=== PATIENT | male | born 1935 | race Caucasian/White ===

== ENCOUNTER 2018-01-10 09:18 | Outpatient (CLI) | payer MEDICARE, OTHER | END 2018-01-10 09:19 | disposition critical access hospital (66) | LOC: EMS 09:18 | PROVIDERS: ATTEND Surgery | DX: R20.0 Anesthesia of skin (principal) | CPT/HCPCS: A0425; A0429 ==

== ENCOUNTER 2018-01-10 09:37 | Emergency (ER) | payer MEDICARE, OTHER ==
--- NOTE | 2018-01-10 10:08 | ED Physician Documentation ---
PD HPI FOCAL NEURO - Stated complaint Stated Complaint: L ARM NUMBNESS - Chief complaint Chief Complaint: General - History obtained from History obtained from: Patient - History of Present Illness Timing - onset: Today Timing - duration: Minutes Timing - details: Abrupt onset, Now resolved Severity of deficit: Moderate Weakness: Arm, Hand, Left Numbness: Hand, Left Associated symptoms: Neck pain. No: Headache, Nausea / vomiting, Seizure, Syncope, Fall, Head injury, Chest pain, Fever Contributing factors: negative: Anticoagulated, Atrial fibrillation Baseline status: positive: A&OX3, ambulatory, indep Similar symptoms before: No diagnosis Recently seen: Not recently seen - Additional information Additional information: 82-year-old male with history of anxiety and BPH has had an episode this morning while sitting on his couch, of some pain across the back of his shoulders and subsequent difficulty using his left arm. 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 He has had something similar to this previously with a panic attack and syncope and he has had this previously with use of an bow and arrow and he has had evaluation of his cervical spine done in [place]. He was diagnosed with bone spurs in the neck. He has not been ill recently and feels he is adequately hydrating. He is under some stress with his 10 year old dog having some transient symptoms of blindness over the past week. He does not recall an injury or over use recently. Review of Systems Constitutional: denies: Fever Eyes: denies: Loss of vision, Decreased vision Ears: denies: Ear pain Nose: denies: Congestion Throat: denies: Sore throat Cardiac: denies: Chest pain / pressure, Palpitations Respiratory: denies: Dyspnea, Cough GI: denies: Abdominal Pain, Nausea, Vomiting : denies: Dysuria, Frequency Skin: denies: Rash Musculoskeletal: reports: Neck pain. denies: Back pain, Extremity pain Neurologic: reports: Focal weakness, Numbness. denies: Generalized weakness, Difficulty speaking, Confused, Altered mental status, Headache, Head injury, LOC PD PAST MEDICAL HISTORY - Past Medical History Cardiovascular: None Respiratory: None Endocrine/Autoimmune: Type 2 diabetes GI: None : Benign prostate hypertrophy, Frequency HEENT: Chronic vision loss Psych: None, Panic attacks Musculoskeletal: Osteoarthritis Derm: None - Past Surgical History Past Surgical History: Yes General: Colonoscopy HEENT: Cataracts, Tonsil/Adenoidectomy - Present Medications Home Medications: Ambulatory Orders Medication Instructions Recorded Confirmed Alprazolam [Xanax] 0.5 mg PO Q24HR@2100 PRN 07/06/13 07/28/15 Aspirin [Aspir 81] 81 mg PO DAILY 07/06/13 07/28/15 Finasteride [Proscar] 5 mg PO DAILY 07/06/13 07/28/15 Tamsulosin [Flomax] 0.4 mg PO DAILY 07/06/13 07/28/15 - Allergies Allergies/Adverse Reactions: Allergies Allergy/AdvReac Type Severity Reaction Status Date / Time amoxicillin [Amoxicillin] Allergy Severe heart palp. Verified 05/08/14 10:30 cyclobenzaprine HCl * Allergy Severe Heart palp. Verified 01/10/18 09:43 [From Flexeril] - Social History Does the pt smoke?: No Smoking Status: Never smoker Does the pt drink ETOH?: No Does the pt have substance abuse?: No - Immunizations Immunizations are current?: Yes - POLST Patient has POLST: No POLST Status: Full Code PD ED PE NORMAL - Vitals Vital signs reviewed: Yes (hypertensive ) - General General: Alert and oriented X 3, No acute distress, Well developed/nourished - HEENT HEENT: Atraumatic, PERRL, EOMI, Ears normal, Moist mucous membranes, Pharynx benign - Neck Neck: Supple, no meningeal sign, No bony TTP - Cardiac Cardiac: RRR, No murmur - Respiratory Respiratory: No respiratory distress, Clear bilaterally - Abdomen Abdomen: Soft, Non tender - Back Back: No CVA TTP, No spinal TTP - Derm Derm: Normal color, Warm and dry, No rash - Extremities Extremities: No deformity, No edema - Neuro Neuro: Alert and oriented X 3, 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, No motor deficit, No sensory deficit, Normal speech Eye Opening: Spontaneous Motor: Obeys Commands Verbal: Oriented GCS Score: 15 - Psych Psych: Normal mood, Normal affect NIHSS - Time Time: 10:20 - Level of Consciousness Level of consciousness: (0) Alert, Keenly responsive LOC Questions: (0) Answers both Q's correct LOC Commands: (0) Performs both correctly - Gaze Best Gaze: (0) Normal - Visual Visual: (0) No loss - Facial Palsy Facial Palsy: (0) Normal, symmetrical movement - Motor Arms (both separate) Motor Arm (right): (0) No drift Motor Arm (left): (0) No drift - Motor Legs (both separate) Motor Leg (right): (0) No drift Motor Leg (left): (0) No drift - Limb Ataxia Limb Ataxia: (0) Absent - Sensory Sensory: (0) Normal - Best Language Best Language: (0) No aphasia - Dysarthria Dysarthria: (0) Normal - Extinction and Inattention (formally neg Extinction and inattention: (0) No abnormality - Total Score/Results Total Score/Result: 0 Results - Vitals Vitals: Vital Signs - 24 hr 01/10/18 01/10/18 09:40 12:42 Temperature 36.1 C L Heart Rate 96 91 Respiratory 18 16 Rate Blood Pressure 172/83 H 149/87 H O2 Saturation 95 96 Oxygen O2 Source Room air - EKG (time done) 0955 Rate: Rate (enter#) (87) Rhythm: NSR [place]: LAD Compare to prior EKG: Unchanged from prior EKG (07-28-15) Computer interpretation: Agree with computer - Labs Labs: Laboratory Tests 01/10/18 01/10/18 01/10/18 09:48 09:48 09:48 WBC 7.0 RBC 4.32 L Hgb 15.1 Hct 43.1 MCV 99.9 H MCH 35.1 H MCHC 35.1 RDW 12.2 Plt Count 178 MPV 9.3 Neut # (Auto) 5.3 Lymph # (Auto) 1.0 L [place] # (Auto) 0.5 Eos # (Auto) 0.2 Baso # (Auto) 0.0 Absolute Nucleated RBC 0.00 Nucleated RBC % 0.0 Sodium 135 Potassium 4.1 Chloride 106 Carbon Dioxide 24 Anion Gap 5.0 L BUN 17 Creatinine 0.9 Estimated GFR (MDRD) 81 L Glucose 139 H Calcium 9.1 Total Bilirubin 0.9 AST 20 ALT 17 Alkaline Phosphatase 73 Troponin I < 0.04 Total Protein 7.0 Albumin 4.3 Globulin 2.7 Albumin/Globulin Ratio 1.6 Lipase 23 - Rads (name of study) head CT Radiology: Prelim report reviewed (Impression: Normal head CT. No acute intracranial abnormality.), EMP read indepedently, See rad report Procedures - IVC sono (time) 1020 Bedside IVC sono: IVC measures (cm) (1.60), Euvolemia PD MEDICAL DECISION MAKING - ED course Complexity details: reviewed old records, reviewed results, re-evaluated patient , considered differential, d/w patient ED course: 82-year-old male with findings isolated to the left arm and hand likely has a cervical radiculopathy. He is treated in the emergency department with 10 mg of dexamethasone. He will follow-up with Dr. Blanca regarding further treatment if necessary. At the conclusion of the visit today he has only minimal findings with the left hand. - Sepsis Event Vital Signs: Vital Signs - 24 hr 01/10/18 01/10/18 09:40 12:42 Temperature 36.1 C L Heart Rate 96 91 Respiratory 18 16 Rate Blood Pressure 172/83 H 149/87 H O2 Saturation 95 96 Oxygen O2 Source Room air Departure - Departure Disposition: 01 Home, Self Care Clinical Impression: Cervical radiculopathy Condition: Stable Instructions: ED Cervical Radiculopathy Follow-Up: Jones Adkins MD [Primary Care Provider] -
[2018-01-10] MEDS: DEXAMETHASONE 10 MG/ML VIAL IVP STA (10:31)
[2018-01-10 10:33] LABS: BASOPHILS % (AUTO) 0.4 %; EOSINOPHILS # (AUTO) 0.2 10^3/uL (0.0-0.7); EOSINOPHILS % (AUTO) 2.7 %; HGB - HEMOGLOBIN 15.1 g/dL (14.0-18.0); LYMPHOCYTES % (AUTO) 14.9 %; MEAN CORPUSCULAR HEMOGLOBIN 35.1 pg (27.0-31.0); MEAN CORPUSCULAR HGB CONC 35.1 g/dL (32.0-36.0); MEAN CORPUSCULAR VOLUME 99.9 fL (80.0-94.0); MEAN PLATELET VOLUME 9.3 fL (7.4-11.4); MONOCYTES # (AUTO) 0.5 10^3/uL (0.0-1.0); MONOCYTES % (AUTO) 6.5 %; NEUTROPHILS # (AUTO) 5.3 10^3/uL (1.5-6.6); NEUTROPHILS % (AUTO) 75.5 %; PLT - PLATELET COUNT 178 10^3/uL (130-450); RED BLOOD COUNT 4.32 10^6/uL (4.70-6.10); RED CELL DISTRIBUTION WIDTH 12.2 % (12.0-15.0)
[2018-01-10 10:41] LABS: ALBUMIN 4.3 g/dL (3.2-5.5); ALBUMIN/GLOBULIN RATIO 1.6 (1.0-2.2); BILIRUBIN,TOTAL 0.9 mg/dL (0.2-1.0); CALCIUM 9.1 mg/dL (8.5-10.3); CREATININE 0.9 mg/dL (0.6-1.2)
--- NOTE | 2018-01-10 11:19 | CT Report ---
Procedure Date: 01/10/2018 Accession Number: [id number] / [id number] Procedure: CT - Head W/O CPT Code: FULL RESULT: EXAM: CT HEAD EXAM DATE: 01/10/2018 10:49 AM. CLINICAL HISTORY: Left arm numbness. COMPARISON: None. TECHNIQUE: Multiaxial CT images were obtained from the foramen magnum to the vertex. Reformats: Coronal. IV contrast: None. In accordance with CT protocol optimization, one or more of the following dose reduction techniques were utilized for this exam: automated exposure control, adjustment of mA and/or KV based on patient size, or use of iterative reconstructive technique. FINDINGS: Parenchyma: No intraparenchymal hemorrhage. No evidence of mass, midline shift, or CT findings of infarction. Cali-white differentiation is distinct. Extraaxial Spaces: Normal for age. No subdural or epidural collections identified. Ventricles: Normal in size and position. Sinuses and Orbits: Imaged paranasal sinuses, orbits, and mastoids show no significant abnormality. Bones: No evidence of fracture or calvarial defect. Other: None. IMPRESSION: Normal head CT. No acute intracranial abnormality. RADIA
[2018-01-10 13:34] VITALS: BP 167/92
== END 2018-01-10 13:36 | disposition home or self-care (01) ==
LOC: EDUNIT# → ED 09:37
DX: M54.12 Radiculopathy, cervical region (principal); E86.0 Dehydration; E11.9 Type 2 diabetes mellitus without complications; Z79.82 Long term (current) use of aspirin
CPT/HCPCS: 36415; 70450; 80053; 83690; 84484; 85025; 93005; 96374; 99283; 99284

== ENCOUNTER 2018-01-17 14:07 | Outpatient (CLI) | payer MEDICARE, OTHER ==
--- NOTE | 2018-01-19 09:18 | MRI Report ---
Procedure Date: 01/17/2018 Accession Number: [id number] / [id number] Procedure: MRI - Cervical Spine W/O CPT Code: FULL RESULT: EXAM: MRI CERVICAL SPINE WITHOUT CONTRAST EXAM DATE: 01/17/2018 06:26 PM. CLINICAL HISTORY: Acute on chronic cervical pain. Left arm weakness. COMPARISONS: MRI of the cervical spine 09/03/2011. TECHNIQUE: Multiplanar, multisequence T1-weighted and fluid-sensitive sequences of the cervical spine without contrast. Other: None. FINDINGS: Neurologic Structures: The visualized posterior fossa structures are unremarkable. No signal abnormality in the visualized spinal cord. Alignment: Mild straightening of the cervical spine is noted. Minimal, 1 mm, spondylolisthesis is seen at C4-C5 and C7-T1. Bone Marrow: No gross fractures or bone lesions. No marrow edema. Interspace Levels/Facets: C1-C2: Evaluated on sagittal series. Small amount of fluid is seen between the anterior arch of C1 and the odontoid process. Mild subcortical cystic change is seen in the tip of the odontoid process. Mild thickening of posterior trans-alar ligaments is noted. No underlying canal stenosis. C2-C3: Marked right-sided and mild left-sided hypertrophic degenerative facet change is seen. Lobular dorsal subligamentous disk protrusion is seen in the midline and greater to the right of midline. Effacement and anterior concavity to the thecal sac and spinal cord is noted. Mild canal stenosis is seen. This has progressed. C3-C4: Marked left-sided hypertrophic degenerative facet change is seen. Minimal circumferential disk bulge is seen. Mild right-sided and marked left-sided hypertrophic degenerative uncovertebral change is noted. Effacement of the thecal sac is noted, greatest anteriorly to the left, with mild canal stenosis. Effacement of exiting C4 nerve roots is seen. Mild right foraminal stenosis. Marked left foraminal stenosis. This has progressed. C4-C5: Mild right-sided degenerative facet change is seen. Marked left-sided degenerative facet change is seen. Minimal spondylolisthesis. Minimal dorsal disk bulge with central annular fissure is seen. Mild ventral protrusion of disk/osteophyte complex is seen. Effacement of the thecal sac is noted without canal stenosis. Effacement of exiting C5 nerve roots is seen. Mild right foraminal stenosis. Marked left foraminal stenosis. C5-C6: Partial osseous fusion of the right facet joint is noted. Patchy partial peripheral osseous interbody fusion is seen. This is progressed. Mild lobular circumferential bridging osteophyte formation is seen posteriorly, laterally, and ventrally. Bridging ossified uncovertebral joints is seen. Lobular effacement and anterior concavity to the thecal sac and spinal cord is seen without canal stenosis. Effacement of exiting C6 nerve roots is seen bilaterally. Moderate bilateral foraminal stenosis. C6-C7: Patchy osseous interbody fusion is once again evident. Mild bridging lateral and ventral osteophyte formation is seen. Bridging uncovertebral change is seen. Effacement of exiting C7 nerve roots is seen with marked foraminal stenosis. C7-T1: Moderate degenerative facet change is seen. T2 hypointense disk signal is noted. Minimal dorsal with mild lateral and ventral disk bulge is seen. Effacement of exiting C8 nerve roots is noted with mild foraminal stenosis. Musculature: Normal. No edema or fatty atrophy. Other: The paravertebral and prevertebral soft tissues are normal. IMPRESSION: 1. Normal appearance to the cervical spinal cord. 2. 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 Interval osseous fusion at the C5-C6 level. Persistent osseous interbody fusion at the C6-C7 level. 3. 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 This has progressed in the upper cervical spine. This includes: -C2-C3: Mild canal stenosis. -C3-C4: Mild canal stenosis. Right Mild foraminal stenosis. Left marked foraminal stenosis. -C4-C5: Right mild foraminal stenosis. Left marked foraminal stenosis. -C5-C6: Bilateral moderate foraminal stenosis. -C6-C7: Bilateral marked foraminal stenosis. -C7-T1: Bilateral mild foraminal stenosis. RADIA
== END 2018-01-17 14:08 | disposition home or self-care (01) ==
LOC: DI 14:07
PROVIDERS: ATTEND Family Medicine
DX: M50.11 Cervical disc disorder with radiculopathy, high cervical region (principal); M25.78 Osteophyte, vertebrae
CPT/HCPCS: 72141

== ENCOUNTER 2019-11-16 09:57 | Outpatient (CLI) | payer MEDICARE, OTHER | END 2019-11-16 09:58 | disposition critical access hospital (66) | LOC: EMS 09:57 | PROVIDERS: ATTEND Surgery | DX: R53.1 Weakness (principal); R26.81 Unsteadiness on feet; R20.0 Anesthesia of skin | CPT/HCPCS: A0425; A0429 ==

== ENCOUNTER 2019-11-16 10:16 | Emergency (ER) | payer MEDICARE, OTHER ==
[2019-11-16] MEDS ORDERED: SODIUM CHLORIDE 0.9% 1,000 ML IV ONE (10:42)
--- NOTE | 2019-11-16 10:55 | ED Physician Documentation ---
PD HPI FOCAL NEURO - Stated complaint Stated Complaint: WEAKNESS - Chief complaint Chief Complaint: Neuro - History obtained from History obtained from: Patient, EMS - Additional information Additional information: Patient comes emergency department via EMS, complaining of left upper extremity weakness that started around 9:00 this morning. Patient states that he was feeling fine when he got up, but had a slight bit of nausea. He states that this is not unusual for him, as he often has some degree of anxiety in the morning, and nausea is associated with this. Patient states he decided to take his dog for a walk, but began to notice that his anxiety had gotten worse. He states that he was not breathing heavily, but began to feel some numbness and tingling in his left hand and felt slightly unsteady on his feet. Patient states that he has had the hand symptoms previously, and was told he had "a pinched nerve in his shoulder" after a full work-up to evaluate for CVA. He states the last time this happened was some years ago, he thinks in 2014. The patient states that he tried to touch his thumb tip to his fingertips, And that when he did so, his fingers seemed clumsy and like he could not make them do what he wanted them to do. Patient states that this same thing happened the last time he had these symptoms when he was diagnosed with a pinched nerve. Patient states that he did not have any other neurologic symptoms. He did not feel that his left leg was weak. He denies any trouble with speaking or swallowing. No visual changes. The patient states that in the hour and a half since symptoms started, his use of the left upper extremity seems to be better. Medics state that when they tried to get the patient to hold his arms out in front of him, they noticed pronator drift. Patient states that the weakness mainly feels as though it is in his forearm and hand, but especially in his fingers. Patient did not notice any symptoms on the right side he has no history of CVA previously. No diabetes. He states he intermittently finds that his blood pressure is elevated, usually in the 140s over 80s. He does not currently take any medication for this. The patient has a history of arthritis in his neck, but has not noticed any increase in his neck pain. No left shoulder pain. No other complaints at this time. Review of Systems Ten Systems: 10 systems reviewed and negative Constitutional: reports: Reviewed and negative Eyes: reports: Reviewed and negative Ears: reports: Reviewed and negative Nose: reports: Reviewed and negative Throat: reports: Reviewed and negative Cardiac: reports: Reviewed and negative Respiratory: reports: Reviewed and negative GI: reports: Reviewed and negative : reports: Reviewed and negative Skin: reports: Reviewed and negative Musculoskeletal: reports: Reviewed and negative Neurologic: reports: Focal weakness, Numbness Psychiatric: reports: Anxiety Endocrine: reports: Reviewed and negative Immunocompromised: reports: Reviewed and negative PD PAST MEDICAL HISTORY - Past Medical History Cardiovascular: None Respiratory: None Endocrine/Autoimmune: Type 2 diabetes GI: None : Benign prostate hypertrophy, Frequency HEENT: Chronic vision loss Psych: None, Panic attacks Musculoskeletal: Osteoarthritis Derm: None - Past Surgical History Past Surgical History: Yes General: Colonoscopy HEENT: Cataracts, Tonsil/Adenoidectomy - Present Medications Home Medications: Ambulatory Orders Medication Instructions Recorded Confirmed Alprazolam [Xanax] 0.5 mg PO Q24HR@2100 PRN 07/06/13 07/28/15 Aspirin [Aspir 81] 81 mg PO DAILY 07/06/13 07/28/15 Finasteride [Proscar] 5 mg PO DAILY 07/06/13 07/28/15 Tamsulosin [Flomax] 0.4 mg PO DAILY 07/06/13 07/28/15 - Allergies Allergies/Adverse Reactions: Allergies Allergy/AdvReac Type Severity Reaction Status Date / Time amoxicillin [Amoxicillin] Allergy Severe heart palp. Verified 11/16/19 10:26 cyclobenzaprine HCl * Allergy Severe Heart palp. Verified 11/16/19 10:26 [From Flexeril] - Social History Does the pt smoke?: No Smoking Status: Never smoker Does the pt drink ETOH?: No Does the pt have substance abuse?: No - Immunizations Immunizations are current?: Yes - POLST Patient has POLST: No POLST Status: Full Code PD ED PE NORMAL - Vitals Vital signs reviewed: Yes - General General: Alert and oriented X 3, No acute distress, Well developed/nourished, Other (Patient is talkative and very well-appearing.) - HEENT HEENT: Atraumatic, PERRL, EOMI, Moist mucous membranes - Neck Neck: Supple, no meningeal sign - Cardiac Cardiac: RRR, No murmur, Strong equal pulses - Respiratory Respiratory: No respiratory distress, Clear bilaterally - Abdomen Abdomen: Soft, Non tender, Non distended - Back Back: Other (Grossly normal range of motion) - Derm Derm: Normal color, Warm and dry, No rash - Extremities Extremities: No deformity, No tenderness to palpate, No edema, No calf tenderness / cord - Neuro Neuro: Alert and oriented X 3, director physical therapy 2-12 intact, Normal speech (The patient is noted to have slightly decreased athletics teacher strength on the left than the right, but 5 out of 5 on both sides. He does have pronator drift on the left, though is able to continually bring the arm back up. He is able to keep the arm off of the bed and his lap, but is not able to fully pronate. Patient has slightly decreased sensation on the left hand and forearm versus the right.) - Psych Psych: Normal mood, Normal affect NIHSS - Time Time: 10:35 - Level of Consciousness Level of consciousness: (0) Alert, Keenly responsive LOC Questions: (0) Answers both Q's correct LOC Commands: (0) Performs both correctly - Gaze Best Gaze: (0) Normal - Visual Visual: (0) No loss - Facial Palsy Facial Palsy: (0) Normal, symmetrical movement - Motor Arms (both separate) Motor Arm (right): (0) No drift Motor Arm (left): (1) Drift - Motor Legs (both separate) Motor Leg (right): (0) No drift Motor Leg (left): (0) No drift - Limb Ataxia Limb Ataxia: (1) Present in 1 limb (Patient has weakness at his wrist and hand on the left, and as such, is not able to extend his index finger appropriately to touch my finger and then his nose. However, with larger gross movements, he is able to bring his hand to my palm and then to his face with accuracy.) - Sensory Sensory: (1) [id number]-he-[id number] loss - Best Language Best Language: (0) No aphasia - Dysarthria Dysarthria: (0) Normal - Extinction and Inattention (formally neg Extinction and inattention: (0) No abnormality - Total Score/Results Total Score/Result: 3 Results - Vitals Vitals: Vital Signs - 24 hr 11/16/19 11/16/19 11/16/19 10:26 10:55 12:04 Temperature 36.9 C Heart Rate 103 H 103 H 96 Respiratory 17 16 16 Rate Blood Pressure 159/88 H 183/101 H 156/89 H O2 Saturation 97 98 97 11/16/19 11/16/19 11/16/19 12:24 13:03 13:44 Temperature Heart Rate 110 H 106 H 99 Respiratory 17 15 17 Rate Blood Pressure 156/89 H 172/89 H 160/84 H O2 Saturation 98 97 97 11/16/19 14:59 Temperature Heart Rate 94 Respiratory 16 Rate Blood Pressure 160/78 H O2 Saturation 97 Oxygen O2 Source Room air - Labs Labs: Laboratory Tests 11/16/19 11/16/19 11/16/19 10:42 10:55 10:55 WBC 7.6 RBC 4.12 L Hgb 14.4 Hct 39.8 L MCV 96.6 H MCH 35.0 H MCHC 36.2 H RDW 11.4 L Plt Count 176 MPV 10.7 Neut # (Auto) 6.0 Lymph # (Auto) 0.8 L [place] # (Auto) 0.5 Eos # (Auto) 0.2 Baso # (Auto) 0.0 Absolute Nucleated RBC 0.00 Nucleated RBC % 0.0 PT 13.7 H INR 1.2 APTT 30.3 Sodium Potassium Chloride Carbon Dioxide Anion Gap BUN Creatinine Estimated GFR (MDRD) Glucose Calcium Total Bilirubin AST ALT Alkaline Phosphatase Troponin I High Sens Total Protein Albumin Globulin Albumin/Globulin Ratio Lipase TSH Urine Color YELLOW Urine Clarity CLEAR Urine pH 6.5 Ur Specific [place] 1.025 Urine Protein NEGATIVE Urine Glucose (UA) 100 H Urine Ketones NEGATIVE Urine Occult Blood NEGATIVE Urine Nitrite NEGATIVE Urine Bilirubin NEGATIVE Urine Urobilinogen 0.2 (NORMAL) Ur Leukocyte Esterase NEGATIVE Ur Microscopic Review NOT INDICATED Urine Culture Comments NOT INDICATED 11/16/19 11/16/19 11/16/19 10:55 10:55 10:55 WBC RBC Hgb Hct MCV MCH MCHC RDW Plt Count MPV Neut # (Auto) Lymph # (Auto) [place] # (Auto) Eos # (Auto) Baso # (Auto) Absolute Nucleated RBC Nucleated RBC % PT INR APTT Sodium 136 Potassium 4.0 Chloride 107 Carbon Dioxide 22 Anion Gap 7.0 BUN 23 H Creatinine 0.7 Estimated GFR (MDRD) 108 Glucose 107 H Calcium 9.0 Total Bilirubin 1.0 AST 19 ALT 14 Alkaline Phosphatase 76 Troponin I High Sens 3.6 Total Protein 7.0 Albumin 4.3 Globulin 2.7 Albumin/Globulin Ratio 1.6 Lipase 27 TSH 1.81 Urine Color Urine Clarity Urine pH Ur Specific [place] Urine Protein Urine Glucose (UA) Urine Ketones Urine Occult Blood Urine Nitrite Urine Bilirubin Urine Urobilinogen Ur Leukocyte Esterase Ur Microscopic Review Urine Culture Comments - Rads (name of study) CT head Radiology: Final report received, EMP read indepedently, See rad report (Final radiologist interpretation: No acute pathology.) Carotid Doppler Radiology: Final report received, EMP read indepedently, See rad report (No evidence of hemodynamically significant stenosis on either side. Likely thyroid cyst.) PD MEDICAL DECISION MAKING - ED course Complexity details: reviewed old records, reviewed results, re-evaluated patient, considered differential, d/w patient ED course: Patient was evaluated by myself immediately upon arrival with medics. He overall was very well-appearing. However, he did have an NIH stroke scale score of 3, and his symptom onset was more concerning for cerebral ischemia than for nerve impingement. As such, he was worked up with labs, EKG, CT scan of the head, and carotid duplex ultrasound. The patient's work-up was negative. His carotid ultrasound did not show significant and CT scan did not show an acute CVA. I did attempt to order MRI, but because of MR tech unavailability, I was not able to get this done from the emergency department. I Reevaluated the patient, whose symptoms had improved significantly. He had much more dexterity of his fingers and was able to do [id number] test with minimal difficulty with his left hand. However, he was still unable to completely athletics teacher his phone to pick it up and nurse reported that he had dropped the urinal when urinating and holding the urinal with his Left hand. I discussed with the patient that we could admit the patient to the hospital, the MRI would not be available for several days. I also discussed with the patient that the other option is to transfer him to another hospital that has MRI availability. The patient, however, stated that his symptoms were improving, and this was very similar to the last time that he had the symptoms and that he would rather just go home and see how things go. He stated that he takes an aspirin every day and that he absolutely does not want to be admitted or the patient was in normal sinus rhythm and without a cardiac murmur. I felt that at this point, management will be primarily preventative and the patient is already on aspirin for this. I discussed with him that he will need to follow-up with his primary care physician within the next week at very most and that he is to return to the emergency department immediately should any of his symptoms recur or worsen. Patient is agreeable to this plan. Departure - Departure Disposition: 01 Home, Self Care Clinical Impression: TIA (transient ischemic attack) Condition: Fair Instructions: TIA Comments: You have been evaluated today with labs, a EKG, CT of the head, and ultrasound of your carotid arteries. Your CT scan does not show any obvious evidence of a stroke at this time. Your carotid ultrasound shows good flow through both of your carotid arteries. It is very possible that you have had a TIA or "transient stroke". While it is still possible that you have a nerve impingement in your neck or shoulder, it is more likely that you have had a stroke. You have opted to go home rather than stay in the hospital, but it is very important that you follow-up with your primary care physician to discuss any further management or work-up. Please continue to take your aspirin every day as you have been doing. If you develop worsening symptoms, please return to the emergency department without delay. Discharge Date/Time: 11/16/19 15:02
[2019-11-16 11:04] LABS: BILIRUBIN,URINE NEGATIVE (NEGATIVE); GLUCOSE, URINE (UA) 100 mg/dL (NEGATIVE); KETONES,URINE (UA) NEGATIVE (NEGATIVE); LEUKOCYTE ESTERASE, URINE NEGATIVE (NEGATIVE); NITRITE,URINE NEGATIVE (NEGATIVE); OCCULT BLOOD,URINE NEGATIVE (NEGATIVE); PH,URINE 6.5 PH (5.0-7.5); PROTEIN,URINE NEGATIVE (NEGATIVE); UROBILINOGEN,URINE 0.2 (NORMAL) E.U./dL (NORMAL)
[2019-11-16 11:05] LABS: BASOPHILS % (AUTO) 0.3 %; EOSINOPHILS # (AUTO) 0.2 10^3/uL (0.0-0.7); EOSINOPHILS % (AUTO) 2.2 %; HGB - HEMOGLOBIN 14.4 g/dL (14.0-18.0); LYMPHOCYTES # (AUTO) 0.8 10^3/uL (1.5-3.5); LYMPHOCYTES % (AUTO) 10.7 %; MEAN CORPUSCULAR HGB CONC 36.2 g/dL (32.0-36.0); MEAN CORPUSCULAR VOLUME 96.6 fL (80.0-94.0); MEAN PLATELET VOLUME 10.7 fL (7.4-11.4); MONOCYTES # (AUTO) 0.5 10^3/uL (0.0-1.0); NEUTROPHILS % (AUTO) 79.4 %; PLT - PLATELET COUNT 176 10^3/uL (130-450); RED BLOOD COUNT 4.12 10^6/uL (4.70-6.10); RED CELL DISTRIBUTION WIDTH 11.4 % (12.0-15.0); WHITE BLOOD COUNT 7.6 x10^3/uL (4.8-10.8)
[2019-11-16 11:07] LABS: CLARITY,URINE CLEAR (CLEAR)
[2019-11-16 11:12] LABS: INR 1.2 (0.8-1.2); PT - PROTHROMBIN TIME 13.7 secs (9.9-12.6)
[2019-11-16 11:19] LABS: ALBUMIN 4.3 g/dL (3.2-5.5); ALBUMIN/GLOBULIN RATIO 1.6 (1.0-2.2); CREATININE 0.7 mg/dL (0.6-1.2); PARTIAL THROMBOPLASTIN TIME 30.3 secs (24.9-33.3)
--- NOTE | 2019-11-16 11:24 | CT Report ---
Reason: L side weakness Procedure Date: 11/16/2019 Accession Number: [id number] / [id number] Procedure: CT - HEAD WO CPT Code: Final Report FULL RESULT: EXAM: CT HEAD EXAM DATE: 11/16/2019 11:09 AM. CLINICAL HISTORY: L side weakness. COMPARISON: HEAD W/O 01/10/2018 10:41 AM. TECHNIQUE: Multiaxial CT images were obtained from the foramen magnum to the vertex. Reformats: Sagittal and coronal. IV contrast: None. In accordance with CT protocol optimization, one or more of the following dose reduction techniques were utilized for this exam: automated exposure control, adjustment of mA and/or KV based on patient size, or use of iterative reconstructive technique. FINDINGS: Parenchyma: No intraparenchymal hemorrhage. No evidence of mass, midline shift, or CT findings of infarction. Cali-white differentiation is distinct. Extraaxial Spaces: Normal for age. No subdural or epidural collections identified. Ventricles: Normal in size and position. Sinuses and Orbits: Imaged paranasal sinuses, orbits, and mastoids show no significant abnormality. Bones: No evidence of fracture or calvarial defect. Other: None. IMPRESSION: No acute pathology. RADIA
--- NOTE | 2019-11-16 12:55 | Ultrasound Report ---
Reason: stroke sx Procedure Date: 11/16/2019 Accession Number: [id number] / [id number] Procedure: US - Carotid Doppler Complete CPT Code: Final Report FULL RESULT: EXAM: BILATERAL CAROTID AND VERTEBRAL ARTERY DUPLEX DOPPLER ULTRASOUND: EXAM DATE: 11/16/2019 12:19 PM CLINICAL HISTORY: Stroke. COMPARISON: CERVICAL SPINE W/O 01/17/2018 3:36 PM MRI CERVICAL SPINE W/O CONT 09/03/2011 2:51 PM. TECHNIQUE: Grayscale imaging, color Doppler, and duplex spectral Doppler were used to evaluate the carotid and vertebral arteries bilaterally. Static images were obtained. FINDINGS: There is moderate heterogeneous atheromatous plaque at the right carotid bifurcation. Normal antegrade flow is present in bilateral vertebral arteries. VELOCITIES (cm/s): Right CCA mid: PSV 59.2 cm/sec CCA dist: PSV 52.2 cm/sec ICA prox: PSV 65.8 cm/sec, EDV 13.2 cm/sec ICA mid: PSV 83.5 cm/sec, EDV 16.2 cm/sec ICA dist: PSV 73.2 cm/sec, EDV 13.8 cm/sec ECA: PSV 98.9 cm/sec Vert: PSV 43.9 cm/sec ICA/CCA: 1.4 Left CCA mid: PSV 80.1 cm/sec CCA dist: PSV 63.3 cm/sec ICA prox: PSV 68.9 cm/sec, EDV 15.4 cm/sec ICA mid: PSV 75.2 cm/sec, EDV 19.4 cm/sec ICA dist: PSV 65.0 cm/sec, EDV 12.8 cm/sec ECA: PSV 115.4 cm/sec Vert: PSV 47.0 cm/sec ICA/CCA: 0.9 ICA diameter stenosis: Right: <50% by velocity and <70% by NASCET criteria. Left: <50% by velocity and <70% by NASCET criteria. IMPRESSION: 1. There is mild to moderate right carotid artery plaquing. 2. In the right carotid artery there are no elevated carotid artery velocities to suggest hemodynamically significant stenosis. 3. In the left carotid artery there are no elevated carotid artery velocities to suggest hemodynamically significant stenosis. 4. Normal antegrade flow is present in bilateral vertebral arteries. 5. There is a 1.6 x 1.2 x 1.3 cm avascular hypoechoic focus within the right thyroid lobe. This probably represents a cyst. General Recommendations: Stenosis =50% ICA - Follow-up ultrasound 6-12 months Stenosis <50% ICA - High Risk Patient with plaque - Follow-up ultrasound 1-2 years Normal Study but High Risk Patient - Follow-up ultrasound 3-5 years Management recommendations and diagnostic criteria are based on current IAC endorsed standards in Carotid Artery Stenosis: Grayscale and Doppler Ultrasound Diagnosis. Validated velocity measurements with angiographic measurements and velocity criteria are extrapolated from diameter data as defined by the Society of Radiologists in Ultrasound Consensus Conference Radiology 2003; 229;340-346. RADIA
[2019-11-16 15:01] VITALS: BP 160/78
== END 2019-11-16 15:02 | disposition home or self-care (01) ==
LOC: EDUNIT# → ED 10:16
DX: G45.9 Transient cerebral ischemic attack, unspecified (principal); E11.9 Type 2 diabetes mellitus without complications
CPT/HCPCS: 36415; 70450; 80053; 81001; 81003; 83690; 84443; 84484; 85025; 85610; 85730; 87086; 93005; 93880; 96360; 99284

== ENCOUNTER 2020-01-26 11:33 | Outpatient (CLI) | payer MEDICARE, OTHER ==
--- NOTE | 2020-01-27 10:01 | Ultrasound Report ---
PROCEDURE: Head or Neck Soft Tissue INDICATIONS: NONTOXIC SINGLE THYROID NODULE TECHNIQUE: Real time scanning was performed of the neck region of interest, with image documentation . COMPARISON: Carotid Doppler ultrasound 11/16/2019. FINDINGS: Right: Thyroid lobe measures 4.4 x 2.7 x 1.8, and is homogeneous in echotexture. Left: Thyroid lobe measures 4.3 x 2.2 x 1.0 cm, and is homogenous in echotexture. Isthmus: 5 mm thick. Nodule number: 1 Location: Mid right thyroid Size: 1.6 x 1.3 x 1.2 cm (previously 1.6 x 1.2 x 1.3 cm). Composition: Predominantly cystic Echogenicity: Very hypoechoic Shape: wider than tall. Margins: Smooth Echogenic foci: punctate Total points: 6 ACR TI-RADS category: 4 Nodule number: 2 Location: Superior left thyroid Size: 0.3 x 0.4 x 0.3 cm. Composition: Solid Echogenicity: Hyperechoic Shape: wider than tall. Margins: Smooth Echogenic foci: Macrocalcifications Total points: 4 ACR TI-RADS category: 4 Nodule number: 3 Location: Superior mid left Size: 0.4 x 0.4 x 0.3 cm. Composition: Solid Echogenicity: Isoechoic Shape: wider than tall. Margins: Smooth Echogenic foci: None Total points: 3 ACR TI-RADS category: 3 IMPRESSION: 3 thyroid nodules are identified. Nodular #1 is moderately suspicious. Recommend fine-needle aspirati on biopsy for nodule #1. ACR TI-RADS definitions and recommendations: TI-RADS 1 (benign): 0 points. FNA not needed. TI-RADS 2 (not suspicious): 2 points. FNA not needed. TI-RADS 3 (mildly suspicious): 3 points. ? FNA if 2.5 cm or larger, follow up if 1.5 cm or larger (at 1, 3, and 5 years). TI-RADS 4 (moderately suspicious): 4-6 points. ? FNA if 1.5 cm or larger, follow up if 1 cm or larger (at 1, 2, 3, and 5 years). TI-RADS 5 (highly suspicious): 7 points or more. ? FNA if 1 cm or larger, follow up if 0.5 cm or larger (every year for 5 years). Reviewed by: Gómez Chauhan MD on 01/27/2020 9:59 AM PDT Approved by: Gómez Chauhan MD on 01/27/2020 9:59 AM PDT Station ID: [id number]
== END 2020-01-26 11:34 | disposition home or self-care (01) ==
LOC: DI 11:33
PROVIDERS: ATTEND Physician Assistant
DX: E04.2 Nontoxic multinodular goiter (principal); Z80.9 Family history of malignant neoplasm, unspecified
CPT/HCPCS: 76536

== ENCOUNTER 2020-03-03 11:21 | Outpatient (CLI) | payer MEDICARE, OTHER ==
[~2020-03-03 11:21] MED LIST: BUFFERED LIDOCAINE 10 ML SYRINGE ONE
[2020-03-03] MEDS ORDERED: BUFFERED LIDOCAINE 10 ML SYRINGE IU ONE (13:18)
--- NOTE | 2020-03-03 13:43 | Ultrasound Report ---
PROCEDURE: FNA Bx w/US Gnd 1st les INDICATIONS: 3 THYROID NODULES, HX OF MALIGNANT MELANOMA TECHNIQUE: The indications, alternatives, benefits, risks, and complications of the procedure were explained to the patient. Written informed consent was obtained and placed in the chart. The area of interest wa s examined sonographically and a site was chosen for ultrasound guided percutaneous sampling. The sk in was prepared and draped in the usual fashion, and anesthetized with 1% lidocaine infiltrated from the skin down to the lesion. Multiple passes were then performed, with [facility]. A bandage was applied to the area of access at completion of t he study. COMPARISON: Thyroid ultrasound 01/26/2020 FINDINGS: Location(s) of lesion(s) sampled: Right lower lobe [place]: 25 gauge hypodermic needles. Number of passes: 6 Medications: 1% lidocaine for local anaesthesia. Complications: None. IMPRESSION: Successful ultrasound-guided right lower lobe thyroid fine needle aspiration, with cytology results p ending. Reviewed by: Zee Lowery MD on 03/03/2020 1:42 PM PDT Approved by: Zee Lowery MD on 03/03/2020 1:42 PM PDT Station ID: [id number]
== END 2020-03-03 11:22 | disposition home or self-care (01) ==
LOC: DI 11:21
PROVIDERS: ATTEND Physician Assistant
DX: E04.2 Nontoxic multinodular goiter (principal); Z85.820 Personal history of malignant melanoma of skin
CPT/HCPCS: 10005

== ENCOUNTER 2020-06-29 12:55 | Outpatient (CLI) | payer MEDICARE, OTHER ==
--- NOTE | 2020-06-29 17:24 | Ultrasound Report ---
PROCEDURE: Head or Neck Soft Tissue INDICATIONS: MULTINODULAR GOITER, INCONCLUSIVE PATH ON FNA TECHNIQUE: Real-time scanning was performed of the thyroid gland, with image documentation. COMPARISON: Thyroid FNA 03/03/2020. Thyroid ultrasound 01/26/2020. FINDINGS: Right: Thyroid lobe measures 4.5 x 2.4 x 1.8 cm, and is homogeneous in echotexture. Left: Thyroid lobe measures 4.7 x 2.1 x 1.1 cm, and is homogenous in echotexture. Isthmus: 4 mm thick. Nodule number: One Location: Right mid Size: 1.8 x 1.3 x 1.2 cm. (Previously 1.6 x 1.3 x 1.2 cm). Composition: Prominently cystic Echogenicity: Markedly hypoechoic Shape: wider than tall. Margins: Smooth Echogenic foci: Punctate Total points: 6 ACR TI-RADS category: TR 4, moderately suspicious Nodule number: Two Location: Left superior lateral Size: 0.3 x 0.3 x 0.2 cm. Not significantly changed. Composition: Solid Echogenicity: Isoechoic Shape: wider than tall. Margins: Smooth Echogenic foci: Macrocalcification Total points: 4 ACR TI-RADS category: TR 4, moderately suspicious Nodule number: Three Location: Left superior mid Size: 0.6 x 0.5 x 0.4 cm. Not significant changed. Composition: Solid Echogenicity: Hyperechoic Shape: wider than tall. Margins: Ill-defined Echogenic foci: None Total points: 3 ACR TI-RADS category: TR 3, mildly suspicious IMPRESSION: Right mid thyroid nodule measuring 1.8 cm is not significantly changed. TR 4, moderately suspicious. Prior FNA was performed February 2020. -Repeat FNA could be considered. -Follow-up thyroid ultrasound in 6-12 months is recommended. Other small nodules are not significantly changed and not meeting criteria for required follow-up. ACR TI-RADS definitions and recommendations: TI-RADS 1 (benign): 0 points. FNA not needed. TI-RADS 2 (not suspicious): 2 points. FNA not needed. TI-RADS 3 (mildly suspicious): 3 points. ? FNA if 2.5 cm or larger, follow up if 1.5 cm or larger (at 1, 3, and 5 years). TI-RADS 4 (moderately suspicious): 4-6 points. ? FNA if 1.5 cm or larger, follow up if 1 cm or larger (at 1, 2, 3, and 5 years). TI-RADS 5 (highly suspicious): 7 points or more. ? FNA if 1 cm or larger, follow up if 0.5 cm or larger (every year for 5 years). Reviewed by: Hai Blunt MD on 06/29/2020 4:23 PM [facility] Approved by: Hai Blunt MD on 06/29/2020 4:23 PM [facility] Station ID: [id number]
== END 2020-06-29 12:56 | disposition home or self-care (01) ==
LOC: DI 12:55
PROVIDERS: ATTEND Physician Assistant
DX: E04.2 Nontoxic multinodular goiter (principal)

== ENCOUNTER 2021-01-15 16:04 | Outpatient (CLI) | payer MEDICARE, OTHER ==
--- NOTE | 2021-01-16 10:01 | Ultrasound Report ---
PROCEDURE: Head or Neck Soft Tissue INDICATIONS: THYROID NODULES TECHNIQUE: Real-time scanning was performed of the thyroid gland, with image documentation. COMPARISON: Ultrasound dated 06/29/2020 FINDINGS: Right: Thyroid lobe measures 4.7 x 1.9 x 2.3 cm, and is homogeneous in echotexture. Left: Thyroid lobe measures 4.7 x 1.8 x 1.6 cm, and is homogenous in echotexture. Isthmus: 3 mm thick. Nodule number: One Location: Right mid thyroid Size: 0.9 x 0.6 x 0.9 cm. Composition: Predominantly solid Echogenicity: Markedly hypoechoic Shape: wider than tall. Margins: Smooth Echogenic foci: Peripheral calcifications Total points: 7 ACR TI-RADS category: 5 Nodule number: Two Location: Left superior thyroid Size: 0.7 x 0.6 x 0.5 cm. Composition: Solid Echogenicity: Isoechoic Shape: wider than tall. Margins: Smooth Echogenic foci: None Total points: 3 ACR TI-RADS category: 3 Nodule number: Three This lesion was seen on the prior examination measuring 3 mm x 3 mm x 2 mm but is not well seen on th e current examination and possibly represents connective tissue. IMPRESSION: 1. Continued sonographic follow-up of the above lesions #1 and 2 is recommended, in 2 years. ACR TI-RADS definitions and recommendations: TI-RADS 1 (benign): 0 points. FNA not needed. TI-RADS 2 (not suspicious): 2 points. FNA not needed. TI-RADS 3 (mildly suspicious): 3 points. ? FNA if 2.5 cm or larger, follow up if 1.5 cm or larger (at 1, 3, and 5 years). TI-RADS 4 (moderately suspicious): 4-6 points. ? FNA if 1.5 cm or larger, follow up if 1 cm or larger (at 1, 2, 3, and 5 years). TI-RADS 5 (highly suspicious): 7 points or more. ? FNA if 1 cm or larger, follow up if 0.5 cm or larger (every year for 5 years). Reviewed by: Nona Ureña MD on 01/16/2021 9:59 AM PDT Approved by: Nona Ureña MD on 01/16/2021 9:59 AM PDT Station ID: [id number]
== END 2021-01-15 16:05 | disposition home or self-care (01) ==
LOC: DI 16:04
PROVIDERS: ATTEND Physician Assistant
DX: E04.2 Nontoxic multinodular goiter (principal)

== ENCOUNTER 2022-03-26 17:06 | Outpatient (CLI) | payer MEDICARE, OTHER | END 2022-03-26 17:07 | disposition critical access hospital (66) | LOC: EMS 17:06 | DX: R53.1 Weakness (principal) | CPT/HCPCS: A0425; A0429 ==

== ENCOUNTER 2022-03-26 17:42 | Emergency (ER) | payer MEDICARE, OTHER ==
--- OUTSIDE RECORDS SUMMARY | 2022-03-26 17:49 | EXTERNAL MEDICAL SUMMARY RPT | Continuity of Care Document ---
:1935 Author Organization [facility] Address [address] [place] [address] Phone Care Team Providers Name Role Phone Unavailable Unavailable Unavailable Connie Sales Lead Generator Enp Unavailable Unavailable Allergies No information. Encounters No information. Functional Status No information. Immunizations No information. Medications date description facility +0000 [facility] [id number] [facility] [id number] [facility] Problems No information. Procedures date description facility +0000 Visit Code Hold All Results/Labs No information. Social History date description facility +0000 Unknown if ever smoked All Vital Signs date measurement value units +0000 BMI BMI 23.84 kg/m2 +0000 BP_diastolic BP_diastolic 80 mmHg [id number] BP_systolic BP_systolic 148 mmHg [id number]+0000 heart_rate heart_rate 107 /min [id number]+0000 height_metric height_metric 167.64 cm [id number]+0000 height_standard height_standard 66 in [id number]+0000 respiration_rate respiration_rate 16 /min [id number]+0000 weight_metric weight_metric 66.77 kg +0000 weight_standard weight_standard 147.2 lb
--- NOTE | 2022-03-26 18:33 | ED Physician Documentation ---
PD HPI FOCAL NEURO - Stated complaint Stated Complaint: L HAND WEAKNESS - Chief complaint Chief Complaint: Neuro - History obtained from History obtained from: Patient - Additional information Additional information: This is a relatively healthy 86-year-old gentleman who presents for the evaluation of left hand weakness. Starting today at noon he feels like the thumb side of his left upper extremity is feeling clumsy and weak. It is also somewhat numb. He says he had this before and was related to a pinched nerve in his neck. He denies any weakness, numbness, or tingling in the face or leg. No headache. No active neck pain. He actually gets this quite frequently but says it usually only last maybe 15 minutes at a time and this time it is persistent. He did fall after this due to clumsiness and injured his left ribs. Review of Systems Ten Systems: 10 systems reviewed and negative Constitutional: denies: Fever, Chills Throat: denies: Dental pain / toothache, Sore throat Cardiac: denies: Chest pain / pressure, Palpitations Respiratory: denies: Dyspnea PD PAST MEDICAL HISTORY - Past Medical History Cardiovascular: None Respiratory: None Endocrine/Autoimmune: Type 2 diabetes GI: None : Benign prostate hypertrophy, Frequency HEENT: Chronic vision loss Psych: None, Panic attacks Musculoskeletal: Osteoarthritis Derm: None - Past Surgical History Past Surgical History: Yes General: Colonoscopy HEENT: Cataracts, Tonsil/Adenoidectomy - Present Medications Home Medications: Ambulatory Orders Medication Instructions Recorded Confirmed ALPRAZolam [Xanax] 0.5 mg PO Q24HR@2100 PRN 07/06/13 03/26/22 Aspirin [Aspir 81] 81 mg PO DAILY 07/06/13 03/26/22 Finasteride [Proscar] 5 mg PO DAILY 07/06/13 03/26/22 Tamsulosin [Flomax] 0.4 mg PO DAILY 07/06/13 03/26/22 - Allergies Allergies/Adverse Reactions: Allergies Allergy/AdvReac Type Severity Reaction Status Date / Time amoxicillin [Amoxicillin] Allergy Severe heart palp. Verified 11/16/19 10:26 cyclobenzaprine HCl * Allergy Severe Heart palp. Verified 11/16/19 10:26 [From Flexeril] - Social History Does the pt smoke?: No Smoking Status: Never smoker Does the pt drink ETOH?: No Does the pt have substance abuse?: No - Immunizations Immunizations are current?: Yes - POLST Patient has POLST: No POLST Status: Full Code PD ED PE NORMAL - Vitals Vital signs reviewed: Yes - General General: Alert and oriented X 3, No acute distress - HEENT HEENT: PERRL, EOMI - Neck Neck: Supple, no meningeal sign, No bony TTP - Cardiac Cardiac: RRR, No murmur, Other (Mild left rib tenderness around rib 8, mid axillary line on the left) - Respiratory Respiratory: No respiratory distress, Clear bilaterally - Abdomen Abdomen: Non tender - Back Back: No CVA TTP, No spinal TTP - Derm Derm: Normal color, Warm and dry - Neuro Neuro: Alert and oriented X 3, Normal speech, Other (Pattern Keeper strength on the left is good if he uses pinky and ring finger, it is weak in the first 3 fingers. He seems to have some clumsiness of the left arm with pronator drift perhaps due to proprioception problems?) Eye Opening: Spontaneous Motor: Obeys Commands Verbal: Oriented GCS Score: 15 - Psych Psych: Normal mood, Normal affect NIHSS - Time Time: 18:25 - Level of Consciousness Level of consciousness: (0) Alert, Keenly responsive LOC Questions: (0) Answers both Q's correct LOC Commands: (0) Performs both correctly - Gaze Best Gaze: (0) Normal - Visual Visual: (0) No loss - Facial Palsy Facial Palsy: (0) Normal, symmetrical movement - Motor Arms (both separate) Motor Arm (right): (0) No drift Motor Arm (left): (1) Drift - Motor Legs (both separate) Motor Leg (right): (0) No drift Motor Leg (left): (0) No drift - Limb Ataxia Limb Ataxia: (1) Present in 1 limb - Sensory Sensory: (0) Normal - Best Language Best Language: (0) No aphasia - Dysarthria Dysarthria: (0) Normal - Extinction and Inattention (formally neg Extinction and inattention: (0) No abnormality - Total Score/Results Total Score/Result: 2 Results - Vitals Vitals: Vital Signs - 24 hr 03/26/22 17:53 Temperature 36.3 C L Heart Rate 101 H Respiratory 17 Rate Blood Pressure 177/88 H O2 Saturation 96 Oxygen O2 Source Room air - EKG (time done) 1845 Rate: Rate (enter#) (106) Rhythm: Sinus tachycardia, LAE [place]: Normal Intervals: Normal DC QRS: LVH Ischemia: Non specific changes. No: ST elevation c/w ischemia, ST depression - Labs Labs: Laboratory Tests 03/26/22 03/26/22 03/26/22 18:45 18:45 18:45 WBC 12.2 H RBC 4.18 L Hgb 14.8 Hct 40.1 L MCV 95.9 H MCH 35.4 H MCHC 36.9 H RDW 11.8 L Plt Count 208 MPV 10.4 Neut # (Auto) 10.7 H Lymph # (Auto) 0.8 L [place] # (Auto) 0.6 Eos # (Auto) 0.1 Baso # (Auto) 0.0 Absolute Nucleated RBC 0.00 Nucleated RBC % 0.0 PT 12.3 INR 1.1 Sodium 134 L Potassium 4.3 Chloride 105 Carbon Dioxide 20 L Anion Gap 9.0 BUN 21 H Creatinine 0.8 Estimated GFR (MDRD) 92 Glucose 120 H Calcium 9.4 - Rads (name of study) CTA Head/Neck Radiology: EMP read contemporaneously CT chest without rib fracture Radiology: EMP read contemporaneously PD MEDICAL DECISION MAKING - ED course ED course: 86-year-old gentleman with recurrent isolated left hand weakness. Differential would include an exacerbation of known severe degenerative disc disease in the neck causing cervical radiculopathy versus a fairly focal and atypical TIA noti ng that he has no symptoms in the face or leg and even the medial side of the hand is spared. CT angiography of the head and neck demonstrates mild white matter disease and volume loss without vascular disease but they do note severe multilevel cervical spondylosis. I discussed with the patient that his isolated left hand weakness which is improving on reevaluation at 8:53 PM likely represents a cervical radiculopathy but stroke is not 100% ruled out. I offered transfer to a facility capable of MRI over the weekend which he declined noting that he feels like he is improving, this is a recurrent phenomenon, and as such declines transfer. Departure - Departure Disposition: 01 Home, Self Care Clinical Impression: Stroke-like symptoms, Cervical radiculopathy, Contusion of rib on left side Condition: Good Record reviewed to determine appropriate education?: Yes Instructions: ED Cervical Radiculopathy Comments: As discussed, this is most likely a cervical radiculopathy, a pinched nerve in your neck, that said stroke is not completely ruled out and as such if you were to worsen or develop any symptoms in the left face or leg you need to return immediately for reevaluation. Follow-up with your primary care physician, next available appointment.
[2022-03-26 18:51] LABS: BASOPHILS % (AUTO) 0.3 %; EOSINOPHILS # (AUTO) 0.1 10^3/uL (0.0-0.7); EOSINOPHILS % (AUTO) 0.5 %; HCT - HEMATOCRIT 40.1 % (42.0-52.0); HGB - HEMOGLOBIN 14.8 g/dL (14.0-18.0); LYMPHOCYTES # (AUTO) 0.8 10^3/uL (1.5-3.5); LYMPHOCYTES % (AUTO) 6.6 %; MEAN CORPUSCULAR HEMOGLOBIN 35.4 pg (27.0-31.0); MEAN CORPUSCULAR HGB CONC 36.9 g/dL (32.0-36.0); MEAN CORPUSCULAR VOLUME 95.9 fL (80.0-94.0); MEAN PLATELET VOLUME 10.4 fL (7.4-11.4); MONOCYTES # (AUTO) 0.6 10^3/uL (0.0-1.0); MONOCYTES % (AUTO) 4.6 %; NEUTROPHILS # (AUTO) 10.7 10^3/uL (1.5-6.6); NEUTROPHILS % (AUTO) 87.7 %; PLT - PLATELET COUNT 208 10^3/uL (130-450); RED BLOOD COUNT 4.18 10^6/uL (4.70-6.10); RED CELL DISTRIBUTION WIDTH 11.8 % (12.0-15.0); WHITE BLOOD COUNT 12.2 x10^3/uL (4.8-10.8)
[2022-03-26 18:59] LABS: CALCIUM 9.4 mg/dL (8.5-10.3); CREATININE 0.8 mg/dL (0.6-1.2); POTASSIUM 4.3 mmol/L (3.5-5.0)
[2022-03-26 19:05] LABS: INR 1.1 (0.8-1.2); PT - PROTHROMBIN TIME 12.3 secs (9.9-12.6)
--- NOTE | 2022-03-26 20:18 | CT Report ---
PROCEDURE: ANGIO HEAD W/WO INDICATIONS: stroke sx CONTRAST: IV CONTRAST: Optiray 320 ml: 100 PO CONTRAST: *NO PO CONTRAST TECHNIQUE: Precontrast 4.5 mm thick angled axial sections acquired from the foramen magnum to the vertex. Afte r the administration of intravenous contrast, 1 mm thick sections acquired through the [place] of [place] is. Postcontrast 4.5 mm thick sections then re-acquired from the foramen magnum to the vertex. 3-di mensional xixpqen-cuoxfpskf-rzzwwamtcr (MIP) and/or volume rendering reformats were acquired of the c entral intracranial vasculature. For radiation dose reduction, the following was used: automated ex posure control, adjustment of mA and/or kV according to patient size. COMPARISON: CT head 11/16/2019, concurrent CT angiogram neck 03/26/2022. FINDINGS: Image quality: Excellent. Anterior circulation: Intracranial internal carotid arteries are patent bilaterally. There is multi focal calcification along the cavernous segments of the internal carotid arteries bilaterally with as sociated mild multifocal narrowing. The paired anterior cerebral arteries are patent bilaterally. Th e middle cerebral arteries are also patent bilaterally. The anterior communicating artery is patent. No high-grade stenosis, occlusion, or discrete filling defects. No cerebral aneurysm identified. Posterior circulation: Visualized portions of the vertebral arteries appear patent and join to form a patent basilar artery. The posterior cerebral arteries are patent bilaterally. No high-grade steno sis, occlusion, or discrete filling defects. No cerebral aneurysm identified. CSF spaces: There is mild cerebral volume loss with prominence of the ventricles and sulci. Basal ci sterns are patent. No extra-axial fluid collections. Brain: No intracranial hemorrhage, mass, or mass effect. Cali-white matter interface is preserved. T here are subcortical and periventricular white matter hypodensities consistent with mild chronic smal l vessel ischemic changes. No abnormal intracranial enhancement. Skull and face: Calvarium and facial bones appear intact, without suspicious lesions. Sinuses: Visualized sinuses and mastoids are clear. IMPRESSION: 1. No acute intracranial abnormality. 2. Mild chronic white matter small vessel ischemic changes and cerebral volume loss. 3. No high-grade stenosis or occlusion of the central intracranial arteries. Reviewed by: Sai Allan MD on 03/26/2022 8:17 PM PDT Approved by: Sai Allan MD on 03/26/2022 8:17 PM PDT Station ID: [id number]
--- NOTE | 2022-03-26 20:22 | CT Report ---
PROCEDURE: CHEST WO INDICATIONS: l rib inj TECHNIQUE: Noncontrast 1mm axial images were acquired from the pulmonary apices to the posterior costophrenic an gles. Axial 5 mm soft tissue kernel reconstructions were performed as well as 8 mm axial MIP and cor onal and sagittal 5 mm reformations. For radiation dose reduction, the following was used: automate d exposure control, adjustment of mA and/or kV according to patient size. COMPARISON: None FINDINGS: Image quality: Excellent. Lungs and pleura: No acute air space opacities. Mild bibasilar atelectasis. No pleural effusions or pneumothorax. Central and peripheral airways are patent and normal in caliber. Mediastinum: Heart size is normal. No pericardial effusion. Coronary artery atherosclerosis. No me diastinal adenopathy by size criteria. Calcified mediastinal and hilar lymph nodes compatible with pr ior granulomatous disease. Thoracic aorta and central pulmonary arteries are normal in size. Esophag us is normal in caliber. No hiatal hernia. Bones and chest wall: No suspicious bony lesions. No acute vertebral body compression fractures. Mu ltilevel thoracic spondylosis. No axillary or supraclavicular adenopathy by size criteria. The thyro id is normal in size and there are no incidental findings. Abdomen: Calcified splenic granulomas. Incompletely characterized 1.1 cm left hepatic dome hypodensi ty likely representing a cyst or hemangioma. Visualized upper abdominal solid organs and bowel loops appear normal in the absence of contrast. IMPRESSION: CT chest without acute cardiopulmonary abnormalities. No acute rib fractures identified. Findings compatible with prior granulomatous disease. CLINICAL RECOMMENDATION STATEMENTS: In patients <35 years with an ITN detected on CT, MRI, or extrathyroidal ultrasound, the Committee re commends further evaluation with dedicated thyroid ultrasound if the nodule is "e1 cm and has no susp icious imaging features, and if the patient has normal life expectancy. In patients "e35 years with an ITN detected on CT, MRI, or extrathyroidal ultrasound, the Committee r ecommends further evaluation with dedicated thyroid ultrasound if the nodule is "e1.5 cm and has no s uspicious imaging features, and if the patient has normal life expectancy. (ACR, 2014) Reviewed by: Arthur Emmanuel MD on 03/26/2022 8:21 PM PDT Approved by: Arthur Emmanuel MD on 03/26/2022 8:21 PM PDT Station ID: [id number]
--- NOTE | 2022-03-26 20:33 | CT Report ---
PROCEDURE: ANGIO NECK W INDICATIONS: stroke sx CONTRAST: IV CONTRAST: Optiray 320 ml: 100 PO CONTRAST: *NO PO CONTRAST TECHNIQUE: After the administration of intravenous contrast, 1.5 mm axial sections acquired from the aortic arch to the [place] of [place]go. Coronal 3-D maximum intensity projection (MIP) and/or volume rendering ref ormats were then performed. For radiation dose reduction, the following was used: automated exposur e control, adjustment of mA and/or kV according to patient size. COMPARISON: CT angiogram of the head from earlier same day. FINDINGS: Image quality: Excellent. Carotid system: The great vessels demonstrate a conventional anatomy as they arise from the aortic a rch. The origins of the common carotid arteries appear patent. The common carotid arteries demonstr ate normal calibers and courses. The bifurcation regions appear normal bilaterally. The internal ca rotid arteries demonstrate normal caliber and course. No high-grade stenosis identified. Atheroscler otic calcifications noted near the carotid bifurcations without hemodynamically significant stenosis. Atherosclerosis noted within the intracranial segments of the bilateral internal carotid arteries. N o high-grade stenosis. Posterior circulation: The origins of the vertebral arteries appear patent. Right dominant vertebra l artery system. The more superior portions of the vertebral arteries demonstrate normal course and c aliber. They join to form a normal appearing basilar artery. Soft tissues: Visualized neck soft tissues demonstrate no suspicious abnormalities. The thyroid is normal in size and there are no incidental findings. Bones: No suspicious bony lesions. No acute compression fractures. Cranial cervical junction is int act. C1-C2 relationship is preserved. Visualized cervical spine demonstrates loss of normal cervical lordosis. Severe multilevel cervical spondylosis with near complete osseous fusion of C5-C7. Facets a re well aligned. Moderate multilevel facet arthropathy. IMPRESSION: Negative CT angiogram of the neck arterial vasculature without hemodynamically significant stenosis i dentified. No evidence for occlusion, aneurysmal dilatation, or dissection. Atherosclerosis. Severe multilevel cervical spondylosis. The estimate of stenosis included in the report of the imaging study was calculated using the NASCET method CLINICAL RECOMMENDATION STATEMENTS: In patients <35 years with an ITN detected on CT, MRI, or extrathyroidal ultrasound, the Committee re commends further evaluation with dedicated thyroid ultrasound if the nodule is "e1 cm and has no susp icious imaging features, and if the patient has normal life expectancy. In patients "e35 years with an ITN detected on CT, MRI, or extrathyroidal ultrasound, the Committee r ecommends further evaluation with dedicated thyroid ultrasound if the nodule is "e1.5 cm and has no s uspicious imaging features, and if the patient has normal life expectancy. (ACR, 2014) Reviewed by: Arthur Emmanuel MD on 03/26/2022 8:31 PM PDT Approved by: Arthur Emmanuel MD on 03/26/2022 8:31 PM PDT Station ID: [id number]
[2022-03-26 21:13] VITALS: BP 166/84
== END 2022-03-26 21:12 | disposition home or self-care (01) ==
LOC: ED 17:42
DX: M54.12 Radiculopathy, cervical region (principal); S20.212A Contusion of left front wall of thorax, initial encounter; X58.XXXA Exposure to other specified factors, initial encounter; E11.9 Type 2 diabetes mellitus without complications
CPT/HCPCS: 36415; 70496; 70498; 71250; 80048; 85025; 85610; 93005; 99284; Q9967